=== PATIENT | male | born 1955 | race Caucasian/White ===

== ENCOUNTER 2019-08-20 19:09 | Inpatient (IN) | payer OTHER ==
[~2019-08-20] VITALS: Ht 175.3 cm; Wt 89.5 kg
--- NOTE | 2019-08-20 19:30 | NUR ---
64Y M BIB EMS. PER PT APPLE WATCH CONSISTENTLY READ HR HIGH 170'S FOR AN HOUR. PT CURRENTLY ASYMPTOMATIC , NO MEDS GIVEN, HR 70'S. PT HAS HX OF AORTIC VALVE REPLACEMENT X2. PT CONNECTED TO ALL MONITORS CLARK HENDRICKSON. AT BEDSIDE CALL LIGHT IN REACH
--- NOTE | 2019-08-20 19:34 | NUR ---
PT TO XRAY AT THIS TIME
--- NOTE | 2019-08-20 19:55 | NUR ---
Note clayton in EDM - 08/20/19 at 2015 by MRICH PIV placed to right forearm. Pt now on 4L oxymask. Pt repositioned. Call light within reach.
[2019-08-20 20:05] LABS: ANION GAP 5 mmol/L (5-15); CALCIUM 9.3 mg/dL (8.5-10.1); CHLORIDE 110 mmol/L (98-107); CREATININE 1.16 mg/dL (0.7-1.3)
[2019-08-20 20:08] LABS: BASOPHILS # (AUTO) 0.03 x10^3/uL (0-0.1); BASOPHILS % (AUTO) 0 % (0-1); EOSINOPHILS # (AUTO) 0.14 x10^3/uL (0-0.4); EOSINOPHILS % (AUTO) 1 % (1-7); LYMPHOCYTES % (AUTO) 14 % (22-44); MD NO; MEAN CORPUSCULAR HEMOGLOBIN 31.1 pg (27.5-34.5); MEAN CORPUSCULAR HGB CONC 33.7 g/dL (33.2-36.2); MEAN CORPUSCULAR VOLUME 92.4 fL (81-97); MEAN PLATELET VOLUME 8.1 fL (7.4-10.4); MONOCYTES # (AUTO) 1.03 x10^3/uL (0.2-0.8); MONOCYTES % (AUTO) 8 % (2-9); NEUTROPHILS # (AUTO) 9.45 x10^3/uL (1.8-6.8); NEUTROPHILS % (AUTO) 76 % (42-75); PLATELET COUNT 240 x10^3/uL (130-400); RED BLOOD COUNT 4.87 x10^6/uL (4.38-5.82); RED CELL DISTRIBUTION WIDTH 13.2 % (9.4-14.8)
[2019-08-20 20:20] LABS: TROPONIN I 0.248 ng/mL (0.000-0.045)
--- NOTE | 2019-08-20 20:28 | NUR ---
AT BEDSIDE TO REASSESS PT AND DISCUSS POC
[2019-08-20] MEDS ORDERED: ASPIRIN 81 MG TABLET CHEW PO ONE (20:30)
[2019-08-20] MEDS ORDERED: ASPIRIN 81 MG TABLET CHEW ONE (20:31)
--- NOTE | 2019-08-20 20:33 | NUR ---
PT MEDICATED PER MAR
[2019-08-20] MEDS ORDERED: ROSU20TA2 PO (20:48)
[2019-08-20] MEDS ORDERED: LISI-167 PO (20:48)
[2019-08-20] MEDS ORDERED: ASPI-496 PO (20:48)
[2019-08-20] MEDS ORDERED: PIOG15TA22 PO (20:48)
[2019-08-20] MEDS ORDERED: NEBI2.5T2 PO (20:48)
--- NOTE | 2019-08-20 21:11 | NUR ---
PT PLACED ON HOSPITAL BED, CALL LIGHT IN REACH. LSAHELLDE-= Addendum: 08/20/19 at 2112 by CONCEPCION CALL LIGHT IN REACH CLARK HENDRICKSON
--- NOTE | 2019-08-20 22:22 | NUR ---
PT RESTING EYES CLOSED, RESP EVEN AND UNLABORED, NADN. CALL LIGHT IN REACH
--- NOTE | 2019-08-20 22:58 | NUR ---
NOTIFIED BY BRONZER PT GOING IN AND OUT OF AFIB RVR HR UP TO 150'S, UPDATED. NO FURTHER ORDERS AT THIS TIME
--- NOTE | 2019-08-20 23:34 | NUR ---
HOSPITALIST AT BEDSIDE TO ADMIT PT.
[2019-08-21] MEDS ORDERED: NITROGLYCERIN 0.4 MG/SPRAY SL PRN (01:30)
[2019-08-21] MEDS ORDERED: morphine SULFATE 10 MG/ML, 1ML IVPush PRN (01:30)
[2019-08-21] MEDS ORDERED: ACETAMINOPHEN 325 MG TABLET PO PRN (01:30)
[2019-08-21] MEDS ORDERED: hydrALAzine 20 MG/ML, 1ML IVPush PRN (01:30)
[2019-08-21] MEDS ORDERED: NITROGLYCERIN 0.4 MG BOTTLE (25 TABS) SL PRN (01:30)
[2019-08-21] MEDS ORDERED: ONDANSETRON 2MG/ML, 2ML IVPush PRN (01:30)
--- NOTE | 2019-08-21 01:51 | NUR ---
TROP 0.250
--- NOTE | 2019-08-21 02:05 | NUR ---
DR. CHINCHILLA UPDATED ON ELEVATED TROP
--- NOTE | 2019-08-21 03:04 | NUR ---
PT SLEEPING ON HOSPITAL BED, LIGHTS DOWN, SNORING RESPIRATIONS HEARD, RESP EQUAL AND UNLABORED. K[place]LEY[place].
--- NOTE | 2019-08-21 03:29 | NUR ---
PT AMB TO RESTROOM WITH STEADY GAIT.
--- NOTE | 2019-08-21 04:37 | NUR ---
PT SLEEPING ON HOSPITAL BED, SNORES HEARD OCCASIONALLY. NADN. CHEST RISE EVEN AND UNLABORED BREATHING.
[2019-08-21] MEDS ORDERED: ASPIRIN 325 MG TABLET PO SCH (06:00)
--- NOTE | 2019-08-21 06:10 | NUR ---
PT AMB TO RESTROOM WITH STEADY GAIT
[2019-08-21] MEDS ORDERED: ASPIRIN 325 MG TABLET ONE (06:30)
--- NOTE | 2019-08-21 06:35 | NUR ---
PT EXPRESSING FRUSTRATION ABOUT STAYING 2 NIGHTS IN HOSPITAL, STS HE NEEDS TO GET HOME TO DAUGHTER. PT EDUCATED ON NEED FOR FUTHER TESTING AND MONITORING. PT STS HE WILL STAY AND SHOULD CALL HIS AND TALK ABOUT WHAT TO DO NEXT
--- NOTE | 2019-08-21 06:48 | NUR ---
REPORT TO MARCELLE FLORES
--- NOTE | 2019-08-21 06:51 | NUR ---
REPORT RECEIVED FROM SANDRA BENOIT.
--- NOTE | 2019-08-21 06:53 | NUR ---
PT RESTING ON YANRNEY. BENITES VSS. CONNECTED TO MONITOR. LAB AT BEDSIDE. Addendum: 08/21/19 at 0716 by TAMI PT RESTING ON HOSPITAL BED.
[2019-08-21] MEDS: LISINOPRIL 10 MG TABLET PO SCH ×2 (07:12→11:40)
[2019-08-21] MEDS: PIOGLITAZONE 15 MG TABLET PO SCH ×2 (07:12→12:14)
[2019-08-21 07:24] LABS: TROPONIN I 0.182 ng/mL (0.000-0.045)
--- NOTE | 2019-08-21 07:55 | NUR ---
PT RESTING ON HOSPITAL BED.
--- NOTE | 2019-08-21 08:14 | NUR ---
PT'S ARRIVED IN ER- SPOKE WITH THIS RN STATING SHE AND HER MAY WANT TO LEAVE TO GO TO [place] IN [place]. THIS RN LET [facility] KNOW- [facility] STATES SHE WILL BE DOWN TO SPEAK WITH FAMILY AT 0930 IF THEY WOULD LIKE TO SPEAK TO HER, OTHERWISE IT IS OKAY IF THEY LEAVE AMA. PT AND PT'S AWARE. STATE THEY WILL CONSULT WITH THEIR CHIEF UNDERWRITER AND LET THIS RN KNOW. PT CURRENLTY AMBULATING IN HALLWAY WITH - STEADY GAIT.
--- NOTE | 2019-08-21 08:46 | NUR ---
PT PREPPED FOR [facility] NOW. CONNECTED TO MONITOR. VSS. DENIES NEEDS. OKAY STAY FOR [facility] THEN SEEING WHAT THE PLAN IS FROM THERE.
[2019-08-21] MEDS ORDERED: REGADENOSON 0.4 MG/5 ML SYRINGE ONE (09:09)
--- NOTE | 2019-08-21 09:15 | NUR ---
THIS RN NOTIFIED [facility] THAT PT WILL BE GOING TO [facility].
--- NOTE | 2019-08-21 09:27 | NUR ---
PT TO [facility] NOW.
--- NOTE | 2019-08-21 11:23 | NUR ---
PT BACK FROM [facility]. RESTING ON HOSPITAL BED. NADN. CONNECTED TO MONITOR. VSS. DENIES NEEDS AT THIS TIME.
--- NOTE | 2019-08-21 11:35 | NUR ---
PER [facility] OKAY TO PLACE PT ON REGULAR DIET AT THIS TIME.
[2019-08-21] MEDS ORDERED: LISINOPRIL 10 MG TABLET ONE (11:37)
--- NOTE | 2019-08-21 11:40 | NUR ---
PT MEDICATED WITH MORNING MEDICATIONS.
--- NOTE | 2019-08-21 11:56 | NUR ---
PT AMBULATORY WITH STEADY GAIT TO BATHROOM.
--- NOTE | 2019-08-21 12:19 | NUR ---
MEAL TRAY ORDERED AT PT REQUEST.
--- NOTE | 2019-08-21 12:36 | NUR ---
REPORT GIVEN TO SANDRA CHINO.
--- NOTE | 2019-08-21 12:49 | NUR ---
THIS RN CALLED MD TO LET HIM KNOW PT DOES NOT WANT TO GO UPSTAIRS AND IS REQUESTING TO SEE HIM. STATES HE WILL BE DOWN TO SPEAK WITH PT WHEN HE CAN. Addendum: 08/21/19 at 1305 by TAMI PREVIOUS NOTE WRITTEN BY THIS RN. ACCIDENTALLY CHARTED UNDER DIFFERENT RN.
--- NOTE | 2019-08-21 12:58 | NUR ---
PT STATES HE IS OKAY GOING UPSTAIRS AT THIS TIME. [facility] AT BEDSIDE TO SPEAK WITH PT.
[2019-08-21 13:35] VITALS: BP 171/84
[2019-08-21 14:00] VITALS: BP 134/64
[2019-08-21] MEDS ORDERED: ATORVASTATIN 80 MG TABLET PO SCH (21:00)
== END 2019-08-21 17:01 | disposition home or self-care (01) | DRG 281 ==
LOC: ED 20:45 → EDIP 21:09 → 5SO 08-21 13:37 → DCLOUNGE 08-21 16:55
PROVIDERS: ADMIT Family Medicine; ATTEND Family Medicine
DX: I21.A1 Myocardial infarction type 2 (principal); I31.3 Pericardial effusion (noninflammatory); I48.0 Paroxysmal atrial fibrillation; Z88.0 Allergy status to penicillin; Z88.8 Allergy status to other drugs, medicaments and biological substances; E78.5 Hyperlipidemia, unspecified; I11.9 Hypertensive heart disease without heart failure; I20.0 Unstable angina; Z79.82 Long term (current) use of aspirin; Z95.3 Presence of xenogenic heart valve
CPT/HCPCS: 36415; 71046; 78452; 80048; 83036; 83735; 84100; 84443; 84484; 85025; 93005; 93017; 93306; J2785; A9502